=== PATIENT | female | born 1960 | race Caucasian/White ===

== ENCOUNTER 2019-11-26 09:32 | Inpatient (IN) ==
[2019-11-26] MEDS ORDERED: HydrALAZINE HCL 20 MG/ML VIAL IV STA (09:59)
--- NOTE | 2019-11-26 10:07 | Emergency Department Note ---
Entered by Joan Morales acting as a scribe for History of Present Illness General Chief complaint: Hypertension Stated complaint: ams Time Seen by Provider: 11/26/19 09:48 Source: patient and family () History of Present Illness Onset (ago): hour(s) 2 Location: head Pain Consistency: + other (episode) Quality: + other (memory loss) Associated symptoms: + denies other symptoms (headache, vomiting, recent illnesses, fever) and + other (hypertension) The patient is a 59 year old female that is presenting to the Emergency Room with complaints of an episode of memory loss that started around 0815 this morning. The patient reports that she suddenly could not remember the past 36 hours. She states that she was unable to remember yesterday at all or anything earlier this morning. Her notes that it started with her being unable to recall making the bed. Her reports that she then became agitated as she realized she could not remember anything or remember what day it was. Her states that the patient would ask a question and then repeat the question 5 minutes later. The patient notes that she was unable to remember what she did for work during the EMS ride to the ED but states that she is able to remember now. Her reports that the patient is able to remember him and her family members. The patient denies any headaches or vomiting. She denies any recent illnesses or fevers. Her notes that the patent was generally well yesterday but the patient is unable to recall this. Her denies that the patient had any difficulty walking or any falls. The patient notes that her ankles were more swollen yesterday than usual. She reports that she has a history of hypertension and takes Lisinopril. She notes that she does not measure her blood pressure often because it has been under control. She states that she believes that she took her medications this morning but she is completely sure. Home Medications Home Medications Medication Instructions Recorded Confirmed Type levothyroxine [Synthroid] 75 mcg PO DAILY #0 tab 06/07/16 11/26/19 History lisinopril [Prinivil] 10 mg PO DAILY #0 tab 06/07/16 11/26/19 History meloxicam 15 mg PO DAILY 11/26/19 11/26/19 History Allergies Allergy/AdvReac Type Severity Reaction Status Date / Time thimerosal Allergy Unknown SWELLING Unverified 11/26/19 10:32 OF EYES Past Med/Surg History Medical History Hypertension Injury of right knee (Inactive) Family History Other No significant family history Social History Preferred Language: Syriac Communication Ability: Effective marital status: Current Living Situation: Spouse current occupational status: employed Feels Safe at Home: Yes Smoking Status: Never smoker Review of Systems See HPI for pertinent positives & negatives. and A total of 10 systems reviewed and were otherwise negative Physical Exam Vital Signs Vital Signs - 24 hr 11/26/19 09:45 11/26/19 09:54 11/26/19 09:57 Temperature 36.5 C Temperature Source Oral Pulse Rate 87 87 77 Pulse Rate from SpO2 Sensor 86 77 Respiratory Rate 20 30 H 16 Respiratory Effort / Characteristics Non-Labored Spontaneous Respiratory Depth Normal Respiratory Pattern Regular Blood Pressure 240/107 H 197/118 H Blood Pressure Mean 151 140 Pulse Oximetry 99 96 97 Oxygen Delivery Method Room Air Sepsis Recent Fever Within 48 Hours No Sepsis Action Taken by Nursing No Action Required 11/26/19 10:00 11/26/19 10:01 11/26/19 10:06 Temperature Temperature Source Pulse Rate 76 86 82 Pulse Rate from SpO2 Sensor 76 84 Respiratory Rate 14 20 15 Respiratory Effort / Characteristics Respiratory Depth Respiratory Pattern Blood Pressure 227/105 H Blood Pressure Mean 118 Pulse Oximetry 98 95 Oxygen Delivery Method Sepsis Recent Fever Within 48 Hours Sepsis Action Taken by Nursing 11/26/19 10:07 11/26/19 10:09 11/26/19 10:11 Temperature Temperature Source Pulse Rate 74 76 72 Pulse Rate from SpO2 Sensor 74 73 Respiratory Rate 16 20 21 Respiratory Effort / Characteristics Respiratory Depth Respiratory Pattern Blood Pressure 250/94 H 223/92 H Blood Pressure Mean 142 129 Pulse Oximetry 96 96 97 Oxygen Delivery Method Room Air Sepsis Recent Fever Within 48 Hours Sepsis Action Taken by Nursing 11/26/19 10:14 11/26/19 10:16 11/26/19 10:36 Temperature Temperature Source Pulse Rate 78 87 85 Pulse Rate from SpO2 Sensor 78 86 Respiratory Rate 15 17 Respiratory Effort / Characteristics Respiratory Depth Respiratory Pattern Blood Pressure 201/98 H 200/86 H Blood Pressure Mean 145 111 Pulse Oximetry 99 98 Oxygen Delivery Method Sepsis Recent Fever Within 48 Hours Sepsis Action Taken by Nursing 11/26/19 10:37 11/26/19 10:38 11/26/19 10:56 Temperature Temperature Source Pulse Rate 81 87 82 Pulse Rate from SpO2 Sensor 81 85 79 Respiratory Rate 19 15 17 Respiratory Effort / Characteristics Respiratory Depth Respiratory Pattern Blood Pressure 228/100 H 242/86 H Blood Pressure Mean 137 167 Pulse Oximetry 98 98 98 Oxygen Delivery Method Sepsis Recent Fever Within 48 Hours Sepsis Action Taken by Nursing 11/26/19 11:00 11/26/19 11:01 11/26/19 11:02 Temperature Temperature Source Pulse Rate 80 80 84 Pulse Rate from SpO2 Sensor 80 79 83 Respiratory Rate 27 H 22 19 Respiratory Effort / Characteristics Respiratory Depth Respiratory Pattern Blood Pressure 215/92 H Blood Pressure Mean 139 Pulse Oximetry 97 99 97 Oxygen Delivery Method Sepsis Recent Fever Within 48 Hours Sepsis Action Taken by Nursing 11/26/19 11:05 11/26/19 11:10 11/26/19 11:15 Temperature Temperature Source Pulse Rate 82 87 83 Pulse Rate from SpO2 Sensor 83 88 84 Respiratory Rate 20 19 14 Respiratory Effort / Characteristics Respiratory Depth Respiratory Pattern Blood Pressure 217/81 H 198/87 H 204/84 H Blood Pressure Mean 107 120 118 Pulse Oximetry 99 97 97 Oxygen Delivery Method Sepsis Recent Fever Within 48 Hours Sepsis Action Taken by Nursing 11/26/19 11:16 11/26/19 11:20 Temperature Temperature Source Pulse Rate 86 87 Pulse Rate from SpO2 Sensor 86 87 Respiratory Rate 20 20 Respiratory Effort / Characteristics Respiratory Depth Respiratory Pattern Blood Pressure 199/81 H Blood Pressure Mean 115 Pulse Oximetry 98 98 Oxygen Delivery Method Sepsis Recent Fever Within 48 Hours Sepsis Action Taken by Nursing VITAL SIGNS: were reviewed as above. GENERAL:Non-toxic in appearance. SKIN: Warm dry and pink. HEAD: Normocephalic and atraumatic. OROPHARYNX: Is clear and moist NECK: Supple without lymphadenopathy or meningismus. LUNGS: clear. HEART: Regular rate and rhythm. ABDOMEN: Soft and nontender. EXTREMITIES: Warm and well perfused. NEUROLOGICALLY: Awake alert and oriented without focal deficit. Cranial nerves 2-12 are intact. There is no pronator drift. Cerebellar testing is within normal limits. There is no nystagmus. There is no facial droop. Speech is clear. Vision is grossly normal. MUSCULOSKELETAL: Good muscle tone. No evidence of trauma. Course Course 09:The patient was evaluated in room A02. A complete history and physical examination was performed. The patient's blood pressure is 240/107 upon arrival. 1125: Upon reevaluation, the patient is resting comfortably. I discussed laboratory and radiographic results with the patient. She verbalized agreement of the treatment plan. The patient will be evaluated for further management and care. 1135: I discussed the patients case with SILVESTRE Dewitt, who will evaluate the patient for further management and care with Dr. Marcelino as the attending physician. Administered Medications Nicardipine HCl 25 mg/ Sodium (Chloride) 250 mls @ 50 mls/hr IV .Q5H SUHA; Protocol Stop: 12/26/19 10:44 Last Titration: 11/26/19 11:18 Dose: 7.5 mg/hr, 75 mls/hr Documented by: [id number] Admin: 11/26/19 10:55 Dose: 5 mg/hr, 50 mls/hr Documented by: [id number] Cosigned by: [id number] Discontinued Medications Hydralazine HCl (Hydralazine Hcl) 10 mg IV NOW STA Stop: 11/26/19 10:00 Last Admin: 11/26/19 10:10 Dose: 10 mg Documented by: [id number] Medical Decision Making Differential Diagnosis Differential includes hypertensive emergency, acute coronary syndrome, myocardial infarction, CVA, TIA, anemia, infection, pneumonia, UTI, pyelonephritis, poor nutrition, dehydration, electrolyte disturbance,hypoglycemia. Medical Records Attestation: I reviewed the patient's medical records. Home Medications Current Medication List: was personally reviewed by me Laboratory Data Attestation: I reviewed the patient's lab results. Result diagrams: 11/26/19 09:55 11/26/19 09:55 Lab Results 11/26/19 11/26/19 11/26/19 Range/Units 09:55 09:55 09:55 WBC 6.04 (4.8-10.8) K/uL RBC 5.05 (4.2-5.4) M/uL Hgb 15.7 (12.0-16.0) g/dL Hct 45.6 (37-47) % MCV 90.3 (80-100) fL MCH 31.1 (25-34) pg MCHC 34.4 (32-36) g/dL RDW Std Deviation 42.2 (36.4-46.3) fL RDW Coeff of Skye 12.9 (11.5-14.5) % Plt Count 208 (130-400) K/uL MPV 9.7 (7.4-10.4) fL Immature Gran % (Auto) 0.2 % Neut % (Auto) 57.9 % Lymph % (Auto) 31.3 % Mckenzie % (Auto) 7.3 % Eos % (Auto) 2.8 % Baso % (Auto) 0.5 % Immature Gran # (Auto) 0.01 (0.00-0.02) K/uL Neut # (Auto) 3.50 (1.4-6.5) K/uL Lymph # (Auto) 1.89 (1.2-3.4) K/uL Mckenzie # (Auto) 0.44 (0.11-0.59) K/uL Eos # (Auto) 0.17 (0-0.5) K/uL Baso # (Auto) 0.03 (0-0.2) K/uL Sodium 140 (136-145) mmol/L Potassium 3.8 (3.5-5.1) mmol/L Chloride 106 (98-107) mmol/L Carbon Dioxide 28 (21-32) mmol/L Anion Gap 6.0 (3-11) BUN 15 (7-18) mg/dl Creatinine 0.89 (0.6-1.2) mg/dl Est Cr Clr Drug Dosing 88.9 ml/min Est GFR ( Amer) 81.6 Est GFR (Non-Af Amer) 70.4 BUN/Creatinine Ratio 16.9 (10-20) Glucose 102 H (70-99) mg/dl Calcium 8.7 (8.5-10.1) mg/dl Total Bilirubin 0.8 (0.2-1) mg/dl AST 29 (15-37) U/L ALT 33 (12-78) U/L Alkaline Phosphatase 96 (45-117) U/L Troponin I < 0.015 Cancelled (0-0.045) ng/ml Total Protein 7.8 (6.4-8.2) gm/dl Albumin 3.9 (3.4-5.0) gm/dl Globulin 3.9 (2.5-4.0) gm/dl Albumin/Globulin Ratio 1.0 (0.9-2) TSH 4.700 H (0.300-4.500) uIu/ml Free T4 0.98 (0.8-1.6) ng/dl Specimen Hemolysis Urine Color Urine Appearance (Clear) Urine pH (4.5-7.5) Ur Specific [place] (1.000-1.030) Urine Protein (Negative) Urine Glucose (UA) (Negative) Urine Ketones (Negative) Urine Blood (Negative) Urine Nitrite (Negative) Urine Bilirubin (Negative) Urine Urobilinogen (Negative) Ur Leukocyte Esterase (Negative) Urine WBC (Auto) (0-5) /hpf Urine RBC (Auto) (0-4) /hpf U Hyaline Cast (Auto) (0-5) /lpf U Epithel Cells (Auto) (0-5) /lpf Urine Bacteria (Auto) (Negative) 11/26/19 Range/Units 10:05 WBC (4.8-10.8) K/uL RBC (4.2-5.4) M/uL Hgb (12.0-16.0) g/dL Hct (37-47) % MCV (80-100) fL MCH (25-34) pg MCHC (32-36) g/dL RDW Std Deviation (36.4-46.3) fL RDW Coeff of Skye (11.5-14.5) % Plt Count (130-400) K/uL MPV (7.4-10.4) fL Immature Gran % (Auto) % Neut % (Auto) % Lymph % (Auto) % [place] % (Auto) % Eos % (Auto) % Baso % (Auto) % Immature Gran # (Auto) (0.00-0.02) K/uL Neut # (Auto) (1.4-6.5) K/uL Lymph # (Auto) (1.2-3.4) K/uL [place] # (Auto) (0.11-0.59) K/uL Eos # (Auto) (0-0.5) K/uL Baso # (Auto) (0-0.2) K/uL Sodium (136-145) mmol/L Potassium (3.5-5.1) mmol/L Chloride (98-107) mmol/L Carbon Dioxide (21-32) mmol/L Anion Gap (3-11) BUN (7-18) mg/dl Creatinine (0.6-1.2) mg/dl Est Cr Clr Drug Dosing ml/min Est GFR ( Amer) Est GFR (Non-Af Amer) BUN/Creatinine Ratio (10-20) Glucose (70-99) mg/dl Calcium (8.5-10.1) mg/dl Total Bilirubin (0.2-1) mg/dl AST (15-37) U/L ALT (12-78) U/L Alkaline Phosphatase (45-117) U/L Troponin I (0-0.045) ng/ml Total Protein (6.4-8.2) gm/dl Albumin (3.4-5.0) gm/dl Globulin (2.5-4.0) gm/dl Albumin/Globulin Ratio (0.9-2) TSH (0.300-4.500) uIu/ml Free T4 (0.8-1.6) ng/dl Specimen Hemolysis Urine Color Yellow Urine Appearance Clear (Clear) Urine pH 7.0 (4.5-7.5) Ur Specific [place] 1.005 (1.000-1.030) Urine Protein 2+ H (Negative) Urine Glucose (UA) Negative (Negative) Urine Ketones Negative (Negative) Urine Blood Trace H (Negative) Urine Nitrite Negative (Negative) Urine Bilirubin Negative (Negative) Urine Urobilinogen Negative (Negative) Ur Leukocyte Esterase Trace H (Negative) Urine WBC (Auto) 1-5 (0-5) /hpf Urine RBC (Auto) 0-4 (0-4) /hpf U Hyaline Cast (Auto) 1-5 (0-5) /lpf U Epithel Cells (Auto) 20-30 H (0-5) /lpf Urine Bacteria (Auto) Negative (Negative) Imaging Data Radiologist's Impression: Radiology results as stated below per my review and the radiologist's interpretation: XR chest 1V portable CLINICAL HISTORY: weakness COMPARISON STUDY: No previous studies for comparison. FINDINGS: The heart is mildly enlarged. There is no failure. There is no lobar consolidation. There is a nonspecific opacity at the level the right cardiophrenic angle, statistically representing atelectasis, or a summation. IMPRESSION: 1. Mild cardiomegaly 2. No evidence of failure 3. No evidence of lobar consolidation ACT 112: Negative or not required by law. Electronically signed by: Farshad Espinoza M.D. 11/26/2019 10:[address] head/brain wo con CLINICAL HISTORY: 59 years-old Female with acute short term memory loss, htn. Acute memory loss with hypertension TECHNIQUE: Multiple axial CT images of the head were obtained without contrast. A dose lowering technique was utilized adhering to the principles of ALARA. CT DOSE: 537.48 mGy.cm COMPARISON: None. FINDINGS: No acute intracranial hemorrhage, midline shift, intracranial mass, hy drocephalus, territorial ischemia or abnormal extra-axial collection. Mild age- related involutional changes, most pronounced in the frontal lobes. The calvarium is intact. Note is made of a metopic suture. The paranasal sinuses, mastoid air cells, and middle ear cavities are clear. IMPRESSION: No acute intracranial abnormality. ACT 112: Negative or not required by law. The above report was generated using voice recognition software. It may contain grammatical, syntax or spelling errors. Electronically signed by: Romain Oneal M.D. 11/26/2019 10:27 AM ECG Data Attestation: I personally reviewed and interpreted this ECG as follows: Indication: + weakness Rate (beats per minute): 77 Rhythm: + normal sinus ECG Intervals/blocks: + Normal QT-c ECG ST segments: no ST elevation ECG Findings: no PACs and no PVCs Blood Pressure Blood Pressure Findings: Elevated blood pressure Blood Pressure Disposition: elevated BP felt to be situational MDM Narrative The patient is a 59-year-old female who presents to the ED with a chief complaint of acute short-term memory loss. The patient this morning around 8 AM started forgetting things that happened recently including about the past 36 hours. She was able to remember her family's names but did not recall recent events. She has been under some stress with the holidays recently with regards to her entire family visiting and a couple of the grandchildren being sick. The patient otherwise did not seem to have any unusual symptoms yesterday, according to the . The patient denied having any symptoms yesterday other than some mild increase in her peripheral edema of the lower extremities. The patient had sudden onset of the symptoms this morning. She has not had any focal neurologic deficits otherwise. No motor deficits. Her initial blood pressure here was elevated at 240/107. The patient states that she recalls taking her medication this morning she thinks but is not completely sure. Her physical exam and neurologic exam was normal. The patient's CT scan of the brain was negative for acute disease. EKG shows a normal sinus rhythm at a rate of 77. Urine did not show infection. Chest x-ray was negative for acute disease. Complete metabolic panel was normal. Troponin was negative. TSH was slightly elevated but free T4 was normal. The patient was initially treated with 10 mg of IV hydralazine. Her blood pressure did not respond with this. She was placed on a nicardipine drip. Her blood pressure continues to be elevated and the patient is having a nicardipine titrated upwards for blood pressure control. I spoke with the hospitalist, the patient will be seen for further evaluation and care. Impression & Plan Amnesia, Hypertension Discharge Plan Visit Data Chief Complaint: Hypertension Stated Complaint: ams ED Provider: Ignacio Hernandez Discharge Problem: Amnesia, Hypertension Patient Disposition: Being Evaluated by Hospitalist Forms Stand Alone Forms: My [facility] Prescriptions Prescriptions: No Action levothyroxine [Synthroid] 75 mcg Tablet 75 mcg PO DAILY Qty: 0 RF: 0 lisinopril [Prinivil] 10 mg Tablet 10 mg PO DAILY Qty: 0 RF: 0 meloxicam 15 mg tablet 15 mg PO DAILY RF: 0 Referrals Referrals: José Miguel Hoffman MD [Primary Care Provider] - Discharge Problem: Hypertension Qualifiers: Hypertension type: unspecified Qualified Code(s): I10 - Essential (primary) hypertension The scribe's documentation has been prepared under my direction and personally reviewed by me in its entirety. I confirm that the note above accurately reflects all work, treatment, procedures, and medical decision making performed by me.
[2019-11-26 10:11] LABS: Basophils # (auto) 0.03 K/uL (0-0.2); Basophils % (auto) 0.5 %; Eosinophils # (auto) 0.17 K/uL (0-0.5); Eosinophils % (auto) 2.8 %; Hematocrit (blood only) 45.6 % (37-47); Hemoglobin 15.7 g/dL (12.0-16.0); Immature Granulocytes # (auto) 0.01 K/uL (0.00-0.02); Immature Granulocytes % (auto) 0.2 %; Lymphocytes # (auto) 1.89 K/uL (1.2-3.4); Lymphocytes % (auto) 31.3 %; Mean Corpuscular Hemoglobin 31.1 pg (25-34); Mean Corpuscular Hgb Conc 34.4 g/dL (32-36); Mean Corpuscular Volume 90.3 fL (80-100); Mean Platelet Volume 9.7 fL (7.4-10.4); Monocytes # (auto) 0.44 K/uL (0.11-0.59); Monocytes % (auto) 7.3 %; Neutrophils % (auto) 57.9 %; Platelet Count 208 K/uL (130-400); RDW Coefficient of Variation 12.9 % (11.5-14.5); RDW Standard Deviation 42.2 fL (36.4-46.3); Red Blood Count 5.05 M/uL (4.2-5.4); White Blood Count 6.04 K/uL (4.8-10.8)
--- NOTE | 2019-11-26 10:24 | XRay Report ---
XR chest 1V portable CLINICAL HISTORY: weakness COMPARISON STUDY: No previous studies for comparison. FINDINGS: The heart is mildly enlarged. There is no failure. There is no lobar consolidation. There i s a nonspecific opacity at the level the right cardiophrenic angle, statistically representing atelec tasis, or a summation. IMPRESSION: 1. Mild cardiomegaly 2. No evidence of failure 3. No evidence of lobar consolidation ACT 112: Negative or not required by law. Electronically signed by: Farshad Espinoza M.D. 11/26/2019 10:22 AM
[2019-11-26 10:25] LABS: Appearance Urine Clear (Clear); Bacteria Urine Automated Negative (Negative); Bilirubin Urine Negative (Negative); Blood Urine Trace (Negative); Color Urine Yellow; Epithelial Cell Urine Auto 20-30 /lpf (0-5); Glucose Urine UA Negative (Negative); Ketones Urine Negative (Negative); Leukocyte Esterase Urine Trace (Negative); Nitrite Urine Negative (Negative); Protein Urine 2+ (Negative); RBC Urine Automated 0-4 /hpf (0-4); Specific Gravity Urine 1.005 (1.000-1.030); Urobilinogen Urine Negative (Negative)
--- NOTE | 2019-11-26 10:29 | CT Scan Report ---
CT head/brain wo con CLINICAL HISTORY: 59 years-old Female with acute short term memory loss, htn. Acute memory loss with hypertension TECHNIQUE: Multiple axial CT images of the head were obtained without contrast. A dose lowering tech nique was utilized adhering to the principles of ALARA. CT DOSE: 537.48 mGy.cm COMPARISON: None. FINDINGS: No acute intracranial hemorrhage, midline shift, intracranial mass, hydrocephalus, territorial ischem ia or abnormal extra-axial collection. Mild age-related involutional changes, most pronounced in the frontal lobes. The calvarium is intact. Note is made of a metopic suture. The paranasal sinuses, mastoid air cells, and middle ear cavities are clear. IMPRESSION: No acute intracranial abnormality. ACT 112: Negative or not required by law. The above report was generated using voice recognition software. It may contain grammatical, syntax o r spelling errors. Electronically signed by: Romain Oneal M.D. 11/26/2019 10:27 AM
[2019-11-26 10:37] LABS: Alanine Aminotransferase 33 U/L (12-78); Albumin Level 3.9 gm/dl (3.4-5.0); Alkaline Phosphatase 96 U/L (45-117); Aspartate Aminotransferase 29 U/L (15-37); BUN Creatinine Ratio 16.9 (10-20); Bilirubin,Total 0.8 mg/dl (0.2-1); Blood Urea Nitrogen 15 mg/dl (7-18); Calcium 8.7 mg/dl (8.5-10.1); Carbon Dioxide 28 mmol/L (21-32); Chloride 106 mmol/L (98-107); Creatinine Clr Calc Pharmacy 88.9 ml/min; Est GFR (African American) 81.6; Est GFR (Non-African American) 70.4; Globulin 3.9 gm/dl (2.5-4.0); Glucose 102 mg/dl (70-99); Potassium 3.8 mmol/L (3.5-5.1); Sodium 140 mmol/L (136-145); Total Protein 7.8 gm/dl (6.4-8.2); Troponin I < 0.015 ng/ml (0-0.045)
[2019-11-26 10:52] LABS: T4 Free Thyroxine 0.98 ng/dl (0.8-1.6)
--- NOTE | 2019-11-26 12:56 | History & Physical Report ---
Date of Service November 26, 2019 Assessment & Plan (1) Hypertensive emergency: (2) Hypertensive encephalopathy: (3) Amnesia: -admit to ICU -patient presenting to the ED with confusion and amensia of the past ~ 36 hours -BP on presentation 240/107 -was given hydralazine 10mg without much response and then started on nicardipine gtt, currently running at 10mg/hr -patient thinks she may have mixed up her meloxicam and lisinopril prescriptions and has not been taking the lisinopril for the past couple of months -no focal deficits on exam, memory improving -head CT negative -trop negative, EKG without acute ST changes -continue to cycle cardiac enzymes, check resting echo -brain MRI -case discussed with Dr. Barnes (4) Hypothyroidism: -TSH mildly elevated at 4.7, normal free T4 0.98 -patient admits to missing some doses of levothyroxine -continue home dose of levothyroxine (5) DVT prophylaxis: -SCDs, ambulate History of Present Illness Chief Complaint: Confusion Primary Care Provider: José Miguel Hoffman MD 59-year-old female who presents to the ED for evaluation of confusion. Patient reports that her family noted her to be very confused this morning. She does not have any confusion at baseline. She reports she does not remember much of [place] and has very limited memory of . Reports she remembers going to [facility]. She reports she remembers waking up this morning however does not remember anything until the ambulance ride. There was no reported unilateral numbness, tingling, or weakness. Denies aphasia, slurred speech, or drooling. No headache or blurred vision. Denies chest pain and shortness of breath. No other recent illnesses, fevers, or chills. Was prescribed Meloxicam a couple of months ago after a knee injury and thinks she may have been mixing that medicine up with her BP med (Lisinopril) and has not been taking the Lisinopril. No abdominal pain, nausea, or vomiting. Denies urinary symptoms. In the ED, BP on presentation was 240/107. She was given Hydralazine 10mg without much improvement in BP and then started on a Nicardipine drip, currently running at 10mg/hr. BP slowly improving. Labs unremarkable. Allergies Allergy/AdvReac Type Severity Reaction Status Date / Time thimerosal Allergy Unknown SWELLING Unverified 11/26/19 10:32 OF EYES Home Medications Home Medications Medication Instructions Recorded Confirmed Type levothyroxine [Synthroid] 75 mcg PO DAILY #0 tab 06/07/16 11/26/19 History lisinopril [Prinivil] 10 mg PO DAILY #0 tab 06/07/16 11/26/19 History fluticasone propionate 2 spray INTRANASAL DAILY PRN 11/26/19 11/26/19 History glucosamine sulfate [Glucosamine] 500 mg PO BID 11/26/19 11/26/19 History meloxicam 15 mg PO DAILY 11/26/19 11/26/19 History Past Med/Surg History Medical History Hypertension (Acute) Hypothyroidism Surgical History H/O arthroscopic knee surgery S/P endometrial ablation Family History Father Coronary heart disease Social History Preferred Language: Moroccan Communication Ability: Effective 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 Beliefs That Will Affect Care: None marital status: Current Living Situation: Spouse current occupational status: employed Other Information That Helps Us Care for You: No Feels Safe at Home: Yes Safety Concerns: Feels Safe At This Time Smoking Status: Never smoker Hx Alcohol Use: No Hx Substance Use: No Review of Systems Review of Systems: ROS per HPI, all other systems reviewed and negative Physical Exam Constitutional: WD/WN, vitals as above Eyes: PERRL, conjunctivae normal, anicteric sclerae ENMT: external ear and nose normal, oropharynx normal Respiratory: normal respiratory effort, lungs clear to auscultation Cardiovascular: Rate/Rhythm: regular rhythm and + tachycardic Vessels: normal peripheral pulses Extremities: no edema Gastrointestinal (Abdomen): normal bowel sounds, soft, nontender, no hepatosplenomegaly Musculoskeletal: no cyanosis or clubbing, extremities motor strength 5/5 Skin: no rashes, warm and dry Neurologic: PERRL, EOMI, accommodation nl, no face palsy, no dysarthria moves all extremities and awake; not confused Motor/Sensory: no pronator drift Cranial Nerves: tongue midline Coordination: normal irlnvq-fc-gyqi test and normal ojgv-gm-ulad test Psychiatric: A+Ox3, euthymic affect Results & Data Vital Signs (Past 12 Hours) Vital Signs Temp Pulse Resp BP Pulse Ox 11/26/19 12:31 106 H 19 95 11/26/19 12:30 114 H 21 192/78 H 95 11/26/19 12:21 110 H 20 97 11/26/19 12:20 110 H 24 170/107 H 97 11/26/19 12:15 106 H 16 95 11/26/19 12:10 102 H 24 174/80 H 95 11/26/19 12:05 96 H 15 95 11/26/19 12:01 96 H 16 97 11/26/19 12:00 100 H 19 179/81 H 96 11/26/19 11:55 96 H 20 95 11/26/19 11:54 95 H 21 195/84 H 96 11/26/19 11:51 96 H 24 211/81 H 97 11/26/19 11:50 106 H 19 11/26/19 11:45 95 H 19 192/81 H 97 11/26/19 11:41 94 H 18 96 11/26/19 11:40 94 H 20 182/85 H 96 11/26/19 11:35 93 H 19 198/88 H 96 11/26/19 11:31 93 H 16 97 11/26/19 11:30 92 H 22 199/82 H 96 11/26/19 11:25 94 H 21 207/86 H 97 11/26/19 11:21 89 17 98 11/26/19 11:20 87 20 199/81 H 98 11/26/19 11:16 86 20 98 11/26/19 11:15 83 14 204/84 H 97 11/26/19 11:10 87 19 198/87 H 97 11/26/19 11:05 82 20 217/81 H 99 11/26/19 11:02 84 19 97 11/26/19 11:01 80 22 215/92 H 99 11/26/19 11:00 80 27 H 97 11/26/19 10:56 82 17 242/86 H 98 11/26/19 10:38 87 15 98 11/26/19 10:37 81 19 228/100 H 98 11/26/19 10:36 85 11/26/19 10:16 87 17 200/86 H 98 11/26/19 10:14 78 15 201/98 H 99 11/26/19 10:11 72 21 223/92 H 97 11/26/19 10:09 76 20 96 11/26/19 10:07 74 16 250/94 H 96 11/26/19 10:06 82 15 11/26/19 10:01 86 20 227/105 H 95 11/26/19 10:00 76 14 98 11/26/19 09:57 77 16 97 11/26/19 09:54 87 30 H 197/118 H 96 11/26/19 09:45 36.5 C 87 20 240/107 H 99 Laboratory Results Short CBC 11/26/19 11/26/19 11/26/19 Range/Units 09:55 09:55 09:55 WBC 6.04 (4.8-10.8) K/uL Hgb 15.7 (12.0-16.0) g/dL Hct 45.6 (37-47) % Plt Count 208 (130-400) K/uL Troponin I < 0.015 Cancelled (0-0.045) ng/ml BMP 11/26/19 09:55 Sodium 140 Potassium 3.8 Chloride 106 Carbon Dioxide 28 BUN 15 Creatinine 0.89 Glucose 102 H Calcium 8.7 Cardiac Enzymes 11/26/19 11/26/19 Range/Units 09:55 09:55 Troponin I < 0.015 Cancelled (0-0.045) ng/ml Liver Function 11/26/19 Range/Units 09:55 Total Bilirubin 0.8 (0.2-1) mg/dl AST 29 (15-37) U/L ALT 33 (12-78) U/L Alkaline Phosphatase 96 (45-117) U/L Albumin 3.9 (3.4-5.0) gm/dl Urine 11/26/19 Range/Units 10:05 Urine Color Yellow Urine Appearance Clear (Clear) Urine pH 7.0 (4.5-7.5) Ur Specific [place] 1.005 (1.000-1.030) Urine Protein 2+ H (Negative) Urine Glucose (UA) Negative (Negative) Diagnostic Findings HEAD CT IMPRESSION: No acute intracranial abnormality. CXR IMPRESSION: 1. Mild cardiomegaly 2. No evidence of failure 3. No evidence of lobar consolidation Code Status & VTE Plan VTE Prophylaxis Plan VTE Prophylaxis will be ordered: Yes Supervising Physician Co-Signing Physician Notes Patient is a 59-year-old female with history of hypertension, hypothyroidism and other problems presents with history of short-term memory loss. She admits to not taking her lisinopril for blood pressure control thinking that she was changed by her PCP to meloxicam for blood pressure control. Presents with hypertensive urgency and was started on nicardipine drip while in ED. CT head showed no acute intracranial abnormality. Patient states her headache, confusion slightly improved after blood pressure controlled. Patient is admitt ed in ICU for further management. Patient is obese, no apparent distress, normocephalic atraumatic, lungs are clear to auscultation, S1-S2, tachycardia, trace pedal edema, abdomen soft nontender, grossly no focal neurological deficits. Patient is admitted for management of hypertensive encephalopathy, rule out PRESS syndrome. Continue IV nicardipine for blood pressure control. Restart lisinopril as able. Will obtain MRI brain. Consider neurology evaluation if needed. Further management as per ICU team. I personally reviewed the record. Patient is interviewed and examined at bedside. Patient's care is coordinated with Ashley Montalvo SCHOOL ATHLETIC DIRECTOR. Please refer to the documentation above for details of patient's presentation and for discussion of other issues.
[2019-11-26] MEDS ORDERED: ICU PROTOCOL FOR HYPERGLYCEMIA PRN (14:57)
--- NOTE | 2019-11-26 15:34 | Critical Care Consultation ---
Date of Consultation November 26, 2019 Assessment & Plan (1) Hypertensive encephalopathy: -- Metabolic encephalopathy Head CT negative Likely secondary to hypertensive encephalopathy could be PRESS, at the time of presentation blood pressure was 240/107, MAP 150 --> f/u MRI and 2D echo Decrease map by 20% in the first hour followed by 5% more in the next 23 hours. Maintain the blood pressure around 160/90 Continue with nicardipine drip We will restart her home medication early in the morning which is lisinopril 10 mg Monitor for signs of any neurological deficit. EKG: Normal sinus rhythm, normal axis, T wave inversions appreciated in lead III no ST changes appreciated. Troponin negative. -- Hypothyroidism Continue with levothyroxine -- Probable TICO BiPAP nightly Patient needs polysomnography as an outpatient -- Secondary hypercoagulable state We will start the patient on Lovenox Patient said that she has son, [id number] and grandson who were diagnosed with influenza today itself. Although patient is not complaining of any symptoms. Will order influenza PCR. Put the patient on isolation till it is negative. (2) Hypertensive emergency: (3) Hypertension: (4) Hypothyroidism: History of Present Illness Attending Physician: Zaheer Marcelino MD History of Present Illness 59-year-old female with past medical history of hypertension, hypothyroidism, obesity was brought into the ER because of confusion which was acute. In the ER patient was found to have blood pressure 240/107. Patient was given hydralazine followed by nicardipine drip. At the blood pressure started to come down patient mental status improved significantly. Patient was more coherent. CT head was negative for any stroke. At the time of examination in the ICU patient is awake alert oriented x3. Denies any headache, no blurry vision, no nausea or vomiting, no weakness. No chest pain, no shortness of breath. Patient is able to move all her ex tremities. Patient denies any recent upper respiratory infection, no runny nose, no tearing from the eyes. Denies any dysuria, no diarrhea. Patient speech is coherent no slurring appreciated. As per the family patient likely missed took meloxicam as her blood pressure medication was taking it for the last couple of days. No recent travel history. No weight loss, no night sweats. Social history: Non-smoker, no illicit drug use, social alcohol, works as a teacher. Has a dog at home which is not allergic to. Seasonal allergies. She takes nasal fluticasone for it. Allergies Allergy/AdvReac Type Severity Reaction Status Date / Time thimerosal Allergy Unknown SWELLING Unverified 11/26/19 10:32 OF EYES Home Medications Home Medications Medication Instructions Recorded Confirmed Type levothyroxine [Synthroid] 75 mcg PO DAILY #0 tab 06/07/16 11/26/19 History lisinopril [Prinivil] 10 mg PO DAILY #0 tab 06/07/16 11/26/19 History fluticasone propionate 2 spray INTRANASAL DAILY PRN 11/26/19 11/26/19 History glucosamine sulfate [Glucosamine] 500 mg PO BID 11/26/19 11/26/19 History meloxicam 15 mg PO DAILY 11/26/19 11/26/19 History Patient History Medical History Hypertension (Acute) Hypothyroidism Surgical History H/O arthroscopic knee surgery S/P endometrial ablation Family History Father Coronary heart disease Social History Preferred Language: Togolese Communication Ability: Effective Red Leader Required: No Beliefs That Will Affect Care: None marital status: Current Living Situation: Spouse current occupational status: employed Other Information That Helps Us Care for You: No Feels Safe at Home: Yes Safety Concerns: Feels Safe At This Time Smoking Status: Never smoker Hx Alcohol Use: No Hx Substance Use: No Physical Exam Physical Exam: Constitutional: No acute distress HEENT: EOMI, PERRLA, Mallampati 4, thick neck Respiratory system: Good air entry bilaterally, no wheeze, no rhonchi, no crackles CVS: S1-S2 positive, no murmurs or gallops Abdomen: Soft, nontender, nondistended, positive bowel sounds x4 Extremities: +2 pulses bilaterally radialis/ dorsalis pedis, no cyanosis, no edema Neuro: Awake alert oriented x3, moving all extremities, strength 5 out of [address] upper and lower extremity, no nystagmus Psych: Normal mood and affect G/U: No Rawls Skin: no rashes, warm and dry Lymphatic: no cervical or axillary lymphadenopathy Results & Data Vital Signs (Past 12 Hours) Vital Signs Temp Pulse Resp BP Pulse Ox 11/26/19 15:00 101 H 22 93 11/26/19 14:50 99 H 19 95 11/26/19 14:48 99 H 20 149/76 H 96 11/26/19 14:40 18 94 11/26/19 14:36 96 11/26/19 14:19 168/73 H 11/26/19 14:11 100 H 14 93 11/26/19 14:10 98 H 21 149/64 H 95 11/26/19 14:01 100 H 18 94 11/26/19 14:00 100 H 17 156/63 H 94 11/26/19 13:51 97 H 22 95 11/26/19 13:50 96 H 23 164/68 H 95 11/26/19 13:41 105 H 15 95 11/26/19 13:40 100 H 15 156/67 H 96 11/26/19 13:38 106 H 20 167/70 H 94 11/26/19 13:31 106 H 18 94 11/26/19 13:30 107 H 25 H 159/75 H 94 11/26/19 13:21 102 H 16 95 11/26/19 13:20 108 H 21 161/76 H 95 11/26/19 13:11 108 H 20 95 11/26/19 13:10 108 H 18 163/73 H 94 11/26/19 13:01 108 H 21 95 11/26/19 13:00 111 H 23 185/79 H 94 11/26/19 12:56 107 H 21 179/85 H 96 11/26/19 12:51 108 H 22 94 11/26/19 12:50 104 H 19 150/70 H 94 11/26/19 12:45 108 H 22 97 11/26/19 12:41 112 H 23 94 11/26/19 12:40 113 H 19 178/78 H 94 11/26/19 12:35 107 H 19 95 11/26/19 12:31 106 H 19 95 11/26/19 12:30 114 H 21 192/78 H 95 11/26/19 12:21 110 H 20 97 11/26/19 12:20 110 H 24 170/107 H 97 11/26/19 12:15 106 H 16 95 11/26/19 12:10 102 H 24 174/80 H 95 11/26/19 12:05 96 H 15 95 11/26/19 12:01 96 H 16 97 11/26/19 12:00 100 H 19 179/81 H 96 11/26/19 11:55 96 H 20 95 11/26/19 11:54 95 H 21 195/84 H 96 11/26/19 11:51 96 H 24 211/81 H 97 11/26/19 11:50 106 H 19 11/26/19 11:45 95 H 19 192/81 H 97 11/26/19 11:41 94 H 18 96 11/26/19 11:40 94 H 20 182/85 H 96 11/26/19 11:35 93 H 19 198/88 H 96 11/26/19 11:31 93 H 16 97 11/26/19 11:30 92 H 22 199/82 H 96 11/26/19 11:25 94 H 21 207/86 H 97 11/26/19 11:21 89 17 98 11/26/19 11:20 87 20 199/81 H 98 11/26/19 11:16 86 20 98 11/26/19 11:15 83 14 204/84 H 97 11/26/19 11:10 87 19 198/87 H 97 11/26/19 11:05 82 20 217/81 H 99 11/26/19 11:02 84 19 97 11/26/19 11:01 80 22 215/92 H 99 11/26/19 11:00 80 27 H 97 11/26/19 10:56 82 17 242/86 H 98 11/26/19 10:38 87 15 98 11/26/19 10:37 81 19 228/100 H 98 11/26/19 10:36 85 11/26/19 10:16 87 17 200/86 H 98 11/26/19 10:14 78 15 201/98 H 99 11/26/19 10:11 72 21 223/92 H 97 11/26/19 10:09 76 20 96 11/26/19 10:07 74 16 250/94 H 96 11/26/19 10:06 82 15 11/26/19 10:01 86 20 227/105 H 95 11/26/19 10:00 76 14 98 11/26/19 09:57 77 16 97 11/26/19 09:54 87 30 H 197/118 H 96 11/26/19 09:45 36.5 C 87 20 240/107 H 99 11/26/19 09:55 11/26/19 09:55 Diagnostic Findings Chest x-ray: Portable film, good inspiratory effort, bilateral costophrenic and cardiophrenic angles are clean, increased cardiac silhouette, no clear infiltrate appreciated. Coding Level of Care Code New Pt Critical Care 1st 30-74 mins Patient Type New Diagnoses Hypertensive encephalopathy I67.4 Hypertensive emergency I16.1 Hypertension I10 Hypertension type: unspecified Hypothyroidism E03.9 Time Spent (min) 65 (1) Hypertension Hypertension type: unspecified Qualified Code(s): I10 - Essential (primary) hypertension
[2019-11-26 15:49] LABS: Influenza A virus by PCR Neg for Influ A (Neg); Influenza B virus by PCR Neg for Influ B (Neg)
[2019-11-26] MEDS ORDERED: ACETAMINOPHEN 500 MG TAB PO ONE (19:49)
[2019-11-26] MEDS ORDERED: GADOBUTROL 65ML VIAL IV PRN (21:10)
--- NOTE | 2019-11-26 21:17 | Magnetic Resonance Report ---
MRI OF THE BRAIN COMBO CLINICAL HISTORY: Amnesia. Hypertension. COMPARISON STUDY: CT of the brain dated 11/26/2019. TECHNIQUE: MRI of the brain was performed utilizing various T1 and T2-weighted sequences in the axial , sagittal, and coronal planes. Contrast-enhanced sequences were acquired following the administratio n of 10.5 cc of Gadavist. FINDINGS: Brain parenchyma: The brain parenchyma is normal in appearance. There is no hemorrhage or mass effect . There is no restricted diffusion to suggest acute ischemia. No enhancing mass lesion is identified on the postcontrast images. Zaidi-white matter differentiation is preserved. No extra-axial fluid bal ection is seen. The cerebellar tonsils are normal in configuration. Ventricles, sulci, and cisterns: Normal in configuration. Pituitary and sella: Unremarkable. Intracranial vasculature: Normal flow voids are maintained at the skull base. Orbits: The bony orbits are grossly intact. Orbital contents are normal in appearance. Sinuses and mastoids: There is a left mastoid effusion. The right mastoid air cells are clear, as are the paranasal sinuses. Calvarium: Unremarkable. Cervical cord: Partially visualized cervical spinal cord is normal in morphology and signal intensity . IMPRESSION: No intracranial abnormality is identified. ACT 112: Negative or not required by law. Electronically signed by: Villa Simpson M.D. 11/26/2019 9:16 PM
[2019-11-26] MEDS: NICARDIPINE IV SCH (23:05)
[2019-11-26] MEDS: SODIUM CHLORIDE 0.9% IV SCH (23:05)
[2019-11-27 04:37] LABS: Hematocrit (blood only) 42.4 % (37-47); Hemoglobin 14.5 g/dL (12.0-16.0); Mean Corpuscular Hemoglobin 31.2 pg (25-34); Mean Corpuscular Hgb Conc 34.2 g/dL (32-36); Mean Corpuscular Volume 91.2 fL (80-100); Mean Platelet Volume 8.8 fL (7.4-10.4); Platelet Count 224 K/uL (130-400); RDW Coefficient of Variation 12.9 % (11.5-14.5); RDW Standard Deviation 42.8 fL (36.4-46.3); Red Blood Count 4.65 M/uL (4.2-5.4); White Blood Count 9.34 K/uL (4.8-10.8)
[2019-11-27 04:38] LABS: BUN Creatinine Ratio 16.8 (10-20); Calcium 8.5 mg/dl (8.5-10.1); Creatinine Clr Calc Pharmacy 109.9 ml/min; Est GFR (African American) 105.5; Phosphorus 3.3 mg/dl (2.5-4.9); Potassium 3.4 mmol/L (3.5-5.1)
[2019-11-27] MEDS ORDERED: POTASSIUM CHLORIDE 20 MEQ TABCR PO STA (05:31)
[2019-11-27] MEDS: LEVOTHYROXINE SODIUM 75 MCG TABLET PO SCH (06:30)
[2019-11-27] MEDS: NICARDIPINE IV SCH ×4 (08:10→19:21)
[2019-11-27] MEDS: SODIUM CHLORIDE 0.9% IV SCH ×4 (08:10→19:21)
--- NOTE | 2019-11-27 08:50 | Hospitalist Progress Note ---
Date of Service November 27, 2019 Assessment & Plan (1) Hypertensive emergency: (2) Hypertensive encephalopathy: (3) Amnesia: Hypertensive emergency with encephalopathy [amnesia] Well-controlled on nicardipine drip. Initiated p.o. lisinopril this morning Will wean off nicardipine drip Once weaned off nicardipine drip can be transferred to the medical floor for continued management We will continue to monitor blood pressure Counseled patient extensively on need for proper medication adherence We will provide more education prior to discharge (4) Hypothyroidism: TSH mildly elevated at 4.7, normal free T4 0.98 patient admitted to missing some doses of levothyroxine Continue home dose of levothyroxine (5) DVT prophylaxis: SCDs, ambulate Subjective Patient seen and examined this morning. Reports amnesia is improving. States that she is recalling the events she did not remember on admission yesterday. Does report some nasal congestion and dry cough. Denies any fevers, chills, nausea, vomiting or chest pain. Reports headache since after starting nicardipine drip. Review of Systems Review of Systems: All systems reviewed and unremarkable except for mentioned above. Physical Exam Physical Exam: General: Well nourished, no acute distress Eyes: PERRL, conjunctivae normal, not pale, anicteric sclerae, EOM intact bilaterally ENMT: External ear and nose normal, oropharynx normal Neck: Normal visual inspection, no tracheal deviation, no swelling noted Respiratory: Normal respiratory effort, no respiratory distress, lungs clear to auscultation, no crackles and no wheezes Cardiovascular: Pulse is RRR. S1 S2 no edema Gastrointestinal (Abdomen): Abdomen is not distended, soft, non-tender to palpation, no guarding, no palpable hepatosplenomegaly, normal bowel sounds Musculoskeletal: No cyanosis or clubbing, all extremities motor strength 5/5 Skin: No rash noted on gross inspection, No ulcers noted Neurologic: Alert and oriented x 3, No focal weakness, sensation grossly intact Psychiatric: Euthymic affect, no depressed affect Results & Data Vital Signs (Past 12 Hours) Vital Signs Temp Pulse Resp BP Pulse Ox 11/27/19 05:00 91 H 18 151/77 H 95 11/27/19 04:00 37 C 86 16 124/79 94 11/27/19 03:00 85 18 153/74 H 93 11/27/19 02:00 74 20 115/64 95 11/27/19 01:00 78 18 174/83 H 94 11/26/19 23:00 74 20 156/74 H 92 11/26/19 21:00 36.9 C 89 18 172/82 H 94 Laboratory Results Laboratory Results - last 24 hr 11/26/19 11/26/19 11/26/19 14:50 16:06 22:03 WBC RBC Hgb Hct MCV MCH MCHC RDW Std Deviation RDW Coeff of Skye Plt Count MPV Sodium Potassium Chloride Carbon Dioxide Anion Gap BUN Creatinine Est Cr Clr Drug Dosing Est GFR ( Amer) Est GFR (Non-Af Amer) BUN/Creatinine Ratio Glucose POC Glucose Calcium Phosphorus Magnesium Troponin I 0.051 H* 0.030 Nasal Screen MRSA (PCR) Negative 11/27/19 11/27/19 11/27/19 04:02 04:02 10:53 WBC 9.34 RBC 4.65 Hgb 14.5 Hct 42.4 MCV 91.2 MCH 31.2 MCHC 34.2 RDW Std Deviation 42.8 RDW Coeff of Skye 12.9 Plt Count 224 MPV 8.8 Sodium 140 Potassium 3.4 L Chloride 108 H Carbon Dioxide 30 Anion Gap 2.0 L BUN 12 Creatinine 0.72 Est Cr Clr Drug Dosing 109.9 Est GFR ( Amer) 105.5 Est GFR (Non-Af Amer) 91.0 BUN/Creatinine Ratio 16.8 Glucose 106 H POC Glucose 88 Calcium 8.5 Phosphorus 3.3 Magnesium 2.0 Troponin I Nasal Screen MRSA (PCR)
--- NOTE | 2019-11-27 08:51 | Critical Care Progress Note ---
Date of Service November 27, 2019 Assessment & Plan (1) Hypertensive encephalopathy: -- Metabolic encephalopathy Head CT and MRI Brain negative Likely secondary to hypertensive encephalopathy could be PRESS, at the time of presentation blood pressure was 240/107, MAP 150 --> f/u 2D echo Decrease map by 20% in the first hour followed by 5% more in the next 23 hours. Maintain the blood pressure around 150/80 Continue with nicardipine drip Restarted lisinopril 10 mg PO daily. Will titrate it up as needed Monitor for signs of any neurological deficit. EKG: Normal sinus rhythm, normal axis, T wave inversions appreciated in lead III no ST changes appreciated. Troponin negative. -- Hypothyroidism Continue with levothyroxine -- Probable TICO BiPAP nightly Patient needs polysomnography as an outpatient -- Secondary hypercoagulable state On Lovenox --Hypokalemia Being replaced Influenza PCR was negative yesterday. We will start the patient on home dose of lisinopril 10 mg p.o. daily and will need to increase gradually to try to reach her blood pressure to normal range. We will monitor the patient once any cardioprotective has been stopped. If the blood pressure stays stable then we will downgrade the patient to medical floor. (2) Hypertensive emergency: (3) Hypertension: (4) Hypothyroidism: Subjective Patient seen and examined at bedside. No acute distress, no adverse events overnight. Does complain of headache which is not that severe. It is resolved with taking pain medication Denies any shortness of breath, no chest pain, no palpitation, no nausea or vomiting. No blurry vision. Patient able to tolerate diet. Patient on 5 of nicardipine at the time of examination for systolic blood pressure in 157 diastolic of 80. Review of Systems Review of Systems: All systems reviewed & are unremarkable except as noted in HPI & below Physical Exam Physical Exam: Constitutional: No acute distress HEENT: EOMI, PERRLA, Mallampati 4, thick neck Respiratory system: Good air entry bilaterally, no wheeze, no rhonchi, no crackles CVS: S1-S2 positive, no murmurs or gallops Abdomen: Soft, nontender, nondistended, positive bowel sounds x4 Extremities: +2 pulses bilaterally radialis/ dorsalis pedis, no cyanosis, no edema Neuro: Awake alert oriented x3, moving all extremities, strength 5 out of 5 bilaterally upper and lower extremity, no nystagmus Psych: Normal mood and affect G/U: No Rawls Skin: no rashes, warm and dry Lymphatic: no cervical or axillary lymphadenopathy Results & Data Vital Signs (Past 12 Hours) Vital Signs Temp Pulse Resp BP Pulse Ox 11/27/19 05:00 91 H 18 151/77 H 95 11/27/19 04:00 37 C 86 16 124/79 94 11/27/19 03:00 85 18 153/74 H 93 11/27/19 02:00 74 20 115/64 95 11/27/19 01:00 78 18 174/83 H 94 11/26/19 23:00 74 20 156/74 H 92 11/26/19 21:00 36.9 C 89 18 172/82 H 94 11/27/19 04:02 11/27/19 04:02 Coding Level of Care Code Critical Care 1st 30-74 mins Diagnoses Hypertensive encephalopathy I67.4 Hypertensive emergency I16.1 Hypertension I10 Hypertension type: unspecified Hypothyroidism E03.9 Time Spent (min) 45 (1) Hypertension Hypertension type: unspecified Qualified Code(s): I10 - Essential (primary) hypertension
[2019-11-27] MEDS ORDERED: lisinopriL 10 MG TAB PO SCH (09:00)
[2019-11-27] MEDS ORDERED: lisinopriL 10 MG TAB PO ONE (09:15)
[2019-11-27] MEDS: ENOXAPARIN INJ 40 MG/0.4 ML SYR SQ SCH (09:29)
[2019-11-27] MEDS: ACETAMINOPHEN 325 MG TAB PO PRN ×2 (10:35→20:10)
[2019-11-27] MEDS: AMLODIPINE BESYLATE 5 MG TAB PO SCH (11:37)
[2019-11-27] MEDS: guaiFENesin SUGAR FREE 100 MG/5 ML UDC PO PRN (20:10)
[2019-11-28 06:01] LABS: Hematocrit (blood only) 40.5 % (37-47); Hemoglobin 13.7 g/dL (12.0-16.0); Mean Corpuscular Hemoglobin 30.7 pg (25-34); Mean Corpuscular Hgb Conc 33.8 g/dL (32-36); Mean Corpuscular Volume 90.8 fL (80-100); Mean Platelet Volume 9.4 fL (7.4-10.4); Platelet Count 191 K/uL (130-400); RDW Coefficient of Variation 13.2 % (11.5-14.5); RDW Standard Deviation 43.5 fL (36.4-46.3); Red Blood Count 4.46 M/uL (4.2-5.4); White Blood Count 5.28 K/uL (4.8-10.8)
[2019-11-28] MEDS: LEVOTHYROXINE SODIUM 75 MCG TABLET PO SCH (06:17)
[2019-11-28 06:40] LABS: BUN Creatinine Ratio 16.4 (10-20); Calcium 8.9 mg/dl (8.5-10.1); Creatinine Clr Calc Pharmacy 94.8 ml/min; Est GFR (African American) 88.8; Est GFR (Non-African American) 76.6; Potassium 3.7 mmol/L (3.5-5.1)
[2019-11-28] MEDS: ENOXAPARIN INJ 40 MG/0.4 ML SYR SQ SCH (08:16)
[2019-11-28] MEDS: AMLODIPINE BESYLATE 5 MG TAB PO SCH (08:17)
[2019-11-28] MEDS: lisinopriL 20 MG TAB PO SCH (08:17)
[2019-11-28] MEDS: ACETAMINOPHEN 325 MG TAB PO PRN (08:50)
[2019-11-28] MEDS ORDERED: AMLODIPINE BESYLATE 5 MG TAB PO ONE (09:22)
[2019-11-28] MEDS: HydrALAZINE HCL 20 MG/ML VIAL IV PRN ×2 (09:50→19:51)
--- NOTE | 2019-11-28 11:55 | Hospitalist Progress Note ---
Date of Service November 28, 2019 Assessment & Plan (1) Hypertensive emergency: (2) Hypertensive encephalopathy: (3) Amnesia: Hypertensive emergency with encephalopathy [amnesia] Weaned off nicardipine drip yesterday and transferred from ICU to medicine floor. BP elevated this morning to 178/96 Currently on lisinopril 20 mg daily. Increase amlodipine to 10 mg daily this morning from 5 mg. We will continue to monitor blood pressure. (4) Hypothyroidism: TSH mildly elevated at 4.7, normal free T4 0.98 Continue home dose of levothyroxine (5) DVT prophylaxis: SCDs, ambulate Subjective Patient seen and examined Reports generalized headache States that amnesia has completely resolved. She can recall everything now. Denies any blurry vision, weakness of any body part, nausea or vomiting. Denies any chest pain, palpitation, dizziness, shortness of breath. Denies any abdominal pain, diarrhea, constipation Review of Systems Review of Systems: All systems reviewed and unremarkable except for mentioned above. Physical Exam Physical Exam: General: Well nourished, well hydrated, no acute distress and not ill appearing Eyes: PERRL, conjunctivae normal, not pale, anicteric sclerae, EOM intact bilaterally ENMT: External ear and nose normal, oropharynx normal Neck: Normal visual inspection, no tracheal deviation, no swelling noted Respiratory: Normal respiratory effort, no respiratory distress, lungs clear to auscultation, no crackles and no wheezes Cardiovascular: Pulse is RRR. S1 S2 no murmurs. Vessels: normal peripheral pulses Extremities: no pedal edema Gastrointestinal (Abdomen): Abdomen is not distended, soft, non-tender to palpation, no guarding, no palpable hepatosplenomegaly, normal bowel sounds Musculoskeletal: No cyanosis or clubbing, all extremities motor strength 5/5 Neurologic: Alert and oriented x 3, No focal weakness, sensation grossly intact Psychiatric: Euthymic affect, no depressed affect Results & Data Vital Signs (Past 12 Hours) Vital Signs Temp Pulse Pulse Pulse Resp BP Pulse Ox 11/28/19 11:39 36.9 C 94 H 18 165/83 H 96 11/28/19 11:07 83 148/78 H 11/28/19 09:51 92 H 167/92 H 11/28/19 08:14 37.2 C 92 H 18 178/96 H 95 11/28/19 07:28 96 H 11/28/19 03:45 37.7 C H 98 H 18 164/94 H 96 11/28/19 00:15 37.2 C 97 H 20 147/80 H 94
[2019-11-28] MEDS ORDERED: ACETAMINOPHEN 325 MG TAB PO PRN (19:40)
[2019-11-28] MEDS ORDERED: ACETAMINOPHEN 325 MG TAB ONE (19:48)
[2019-11-28] MEDS ORDERED: CALCIUM CARBONATE 500 MG CHEWABLE TAB PO PRN (20:02)
[2019-11-29] MEDS: HydrALAZINE HCL 20 MG/ML VIAL IV PRN (05:00)
[2019-11-29] MEDS: LEVOTHYROXINE SODIUM 75 MCG TABLET PO SCH (05:37)
[2019-11-29] MEDS: guaiFENesin SUGAR FREE 100 MG/5 ML UDC PO PRN (05:38)
[2019-11-29 06:38] LABS: Hematocrit (blood only) 40.4 % (37-47); Hemoglobin 13.8 g/dL (12.0-16.0); Mean Corpuscular Hemoglobin 30.9 pg (25-34); Mean Corpuscular Hgb Conc 34.2 g/dL (32-36); Mean Corpuscular Volume 90.4 fL (80-100); Mean Platelet Volume 9.2 fL (7.4-10.4); Platelet Count 189 K/uL (130-400); RDW Coefficient of Variation 13.1 % (11.5-14.5); RDW Standard Deviation 43.6 fL (36.4-46.3); Red Blood Count 4.47 M/uL (4.2-5.4); White Blood Count 4.82 K/uL (4.8-10.8)
[2019-11-29 07:06] LABS: BUN Creatinine Ratio 12.3 (10-20); Calcium 8.9 mg/dl (8.5-10.1); Creatinine Clr Calc Pharmacy 111.4 ml/min; Est GFR (African American) 109.1; Est GFR (Non-African American) 94.2; Potassium 3.4 mmol/L (3.5-5.1)
[2019-11-29] MEDS: ENOXAPARIN INJ 40 MG/0.4 ML SYR SQ SCH (08:57)
[2019-11-29] MEDS: lisinopriL 20 MG TAB PO SCH (08:58)
[2019-11-29] MEDS ORDERED: AMLODIPINE BESYLATE 5 MG TAB PO SCH (09:00)
--- NOTE | 2019-11-29 12:17 | Discharge Summary ---
Date of Service November 29, 2019 Admission HPI Per Admitting Provider 59-year-old female who presents to the ED for evaluation of confusion. Patient reports that her family noted her to be very confused this morning. She does not have any confusion at baseline. She reports she does not remember much of [place] and has very limited memory of [place]. Reports she remembers going to [facility]. She reports she remembers waking up this morning however does not remember anything until the ambulance ride. There was no reported unilateral numbness, tingling, or weakness. Denies aphasia, slurred speech, or drooling. No headache or blurred vision. Denies chest pain and shortness of breath. No other recent illnesses, fevers, or chills. Was prescribed Meloxicam a couple of months ago after a knee injury and thinks she may have been mixing that medicine up with her BP med (Lisinopril) and has not been taking the Lisinopril. No abdominal pain, nausea, or vomiting. Denies urinary symptoms. In the ED, BP on presentation was 240/107. She was given Hydralazine 10mg without much improvement in BP and then started on a Nicardipine drip, currently running at 10mg/hr. BP slowly improving. Labs unremarkable. Admission Exam Per Admitting Provider Constitutional: WD/WN, vitals as above Eyes: PERRL, conjunctivae normal, anicteric sclerae ENMT: external ear and nose normal, oropharynx normal Respiratory: normal respiratory effort, lungs clear to auscultation Cardiovascular: Rate/Rhythm: regular rhythm and + tachycardic Vessels: normal peripheral pulses Extremities: no edema Gastrointestinal (Abdomen): normal bowel sounds, soft, nontender, no hepatosplenomegaly Musculoskeletal: no cyanosis or clubbing, extremities motor strength 5/5 Skin: no rashes, warm and dry Neurologic: PERRL, EOMI, accommodation nl, no face palsy, no dysarthria moves all extremities and awake; not confused Motor/Sensory: no pronator drift Cranial Nerves: tongue midline Coordination: normal [id number] test and normal [id number] test Psychiatric: A+Ox3, euthymic affect Principal Diagnosis Hypertensive emergency Hypertensive encephalopathy with amnesia Discharge Exam General: Well nourished, well hydrated, no acute distress Eyes: PERRL, conjunctivae normal, EOM intact bilaterally ENMT: External ear and nose normal, oropharynx normal Neck: Normal visual inspection, no tracheal deviation, no swelling noted Respiratory: Normal respiratory effort, no respiratory distress, lungs clear to auscultation, no crackles and no wheezes Cardiovascular: Pulse is RRR. S1 S2 no murmur. No pedal edema Gastrointestinal (Abdomen): Abdomen is not distended, soft, non-tender to palpation, no guarding, no palpable hepatosplenomegaly, normal bowel sounds Neurologic: Alert and oriented x 3, No focal weakness, sensation grossly intact Psychiatric: Euthymic affect, no depressed affect Discharge Data Allergies Allergy/AdvReac Type Severity Reaction Status Date / Time thimerosal Allergy Unknown SWELLING Unverified 11/26/19 10:32 OF EYES Consultations 11/26/19 14:57 Consult Virologist Routine Ordered Studies 11/26/19 10:00 CT head/brain wo con Stat No acute intracranial abnormality. 11/26/19 14:57 MR brain wo/w con Urgent No intracranial abnormality is identified. Hospital Course (1) Hypertensive emergency: (2) Hypertensive encephalopathy: (3) Amnesia: Hypertensive emergency with encephalopathy [amnesia] Amnesia has resolved. Patient reports that she may have missed taking her meloxicam for her lisinopril Required nicardipine drip in ICU. This was weaned off 2 days ago Patient antihypertensives were adjusted to optimize blood pressure control. Will discharge patient today on lisinopril 20 mg daily and amlodipine 10 mg daily. Provided education on hypertension management and drug side effects. Patient states that has gotten home blood pressure measuring machine. Advised to keep home record BPN to take that with the machine to PCP on follow- up. (4) Hypothyroidism: TSH mildly elevated at 4.7, normal free T4 0.98 Continue home dose of levothyroxine Total Time Total Time Spent Total Time Spent (In Minutes): 25 Total Time Includes: Examination of the Patient, Discharge Planning and Medication Reconciliation Discharge Plan Discharge Items Patient Disposition: Home - Self-Care Reason For Visit: Confusion Discharge Diagnosis: Hypertensive emergency Hypertensive encephalopathy Activity: Resume your previous activity Non-emergency contact: Primary Care Provider Call non-emergency contact if: you have any medication questions and your symptoms worsen Follow-up/Referrals: José Miguel Hoffman MD [Primary Care Provider] - (Follow up within 7 days) Diet: Heart Healthy Addtl Attending Provider Instructions: Ms Schulz. You came to the hospital due to confusion and forgetfulness. On evaluation, you were found to have very elevated blood pressures (240/107) and you were forgetful of recent events. You were admitted to the ICU and started on a drip to control your blood pressu re. Your blood pressure medication, lisinopril was increased to 20mg daily and a new medication amlodipine was started. It is very important that you take your medications as they are prescribed. Please ensure you continue to monitor your blood pressure at home and follow up with your Primary Doctor for continued management. It was a pleasure taking care of you. Pending Studies at Discharge: No Stand-Alone Forms: My [facility], Smoking Cessation Medications and DC Order Prescriptions: New amlodipine [Norvasc] 5 mg Tablet 10 mg PO QAM 30 Days Qty: 60 RF: 0 Continued levothyroxine [Synthroid] 75 mcg Tablet 75 mcg PO DAILY Qty: 0 RF: 0 glucosamine sulfate [Glucosamine] 500 mg Tablet 500 mg PO BID RF: 0 fluticasone propionate 50 mcg/actuation spray,suspension 2 spray INTRANASAL DAILY PRN (Reason: Allergy Symptoms) RF: 0 Changed lisinopril [Prinivil] 10 mg Tablet 20 mg PO DAILY 30 Days Qty: 60 RF: 0 Discontinued meloxicam 15 mg tablet 15 mg PO DAILY RF: 0 Discharge Orders: Discharge Order (Routine); Ordered 11/29/19 Ordered By: Erna Shaw Admission Data Admit Date/Time: 11/26/19 12:35 Attending Provider: Erna Shaw I. Admit Provider: Zaheer Marcelino Primary Care Provider: José Miguel Hoffman Other Providers: Zaheer Marcelino ; Jason Barnes Other Interventions: Discharge Summary Assessment (RN) Last Done: 11/29/19 12:28 DC Date/Time DO NOT enter until pt leaves facility: 11/29/19 13:00
== END 2019-11-29 13:00 | disposition home or self-care (01) | DRG 305 ==
LOC: ED 09:32 → SUATTDRO 12:35 → 1E 12:35 → 2N 11-27 18:09